=== PATIENT | male | born 1975 | race Caucasian/White ===

== ENCOUNTER 2018-12-15 09:49 | Emergency (ER) | payer OTHER ==
[~2018-12-15] VITALS: Ht 170.2 cm; Wt 86.2 kg
--- OUTSIDE RECORDS SUMMARY | 2018-12-15 09:54 | XMS REPORT | Continuity of Care Document ---
Author Organization Unknown Address Unknown Phone Unavailable Allergies Active Description Code Type Severity Reaction Onset Reported/Identified Relationship to Patient Clinical Status Yes NO KNOWN DRUG ALLERGIES NO KNOWN DRUG ALLERG UNKNOWN Yes NKANo Known Allergies NKA Miscellaneous Allergy Mild N/A 07/14/2009 Medications Medication Packaging Start Date Stop Date Route Dosage Sig AZITHROMYCIN TAB 500 MG (ZITHROMAX) MG 04/21/2016 04/21/2016 ONCE&2208 PROMETHAZINE W/ CODEINE LIQ 0 (PHENERGAN) ml 04/21/2016 04/21/2016 PRN ONCE IPRATROPIUM/ALBUTEROL INH SOLN INH 0 (DUO-NEB INH SOLN) MLS 05/05/2016 05/05/2016 ONCE&1939 PROMETHAZINE W/ CODEINE LIQ 0 (PHENERGAN) ml 05/05/2016 05/05/2016 PRN ONCE Problems Date Dx Coded Attending Type Code Diagnosis Diagnosed By 04/21/2016 Selene Goins 465.8 ACUTE UPPER RESPIRATORY INFECTIONS OF OTHER MULTIPLE SITES 04/21/2016 Selene Goins J06.9 ACUTE UPPER RESPIRATORY INFECTION, UNSPECIFIED 05/05/2016 Osorio Victoria 466.0 ACUTE BRONCHITIS 05/05/2016 Osorio Victoria J20.9 ACUTE BRONCHITIS, UNSPECIFIED 03/14/2017 ALVA ERIC Ot G44.209 TENSION-TYPE HEADACHE, UNSPECIFIED, NOT 03/14/2017 ALVA ERIC Ot R51 HEADACHE Procedures There is no data. Results There is no data. Encounters ACCT No. Visit Date/Time Discharge Status Pt. Type Provider Facility Loc./Unit Complaint [id number] 06/19/2012 11:11:42 RECURRING [id number] 05/05/2016 19:22:00 05/05/2016 20:12:[id number] 04/21/2016 21:22:00 04/21/2016 22:21:00 [facility] [id number] 04/21/2016 22:09:51 Document Registration [id number] 03/14/2017 11:03:00 03/14/2017 13:16:00 DIS ALVA Tejeda [facility] ER HEADACHE
[2018-12-15] MEDS ORDERED: LIDOCAINE 1% INJ 20 ML 20 ML VIAL ONE (10:04)
[2018-12-15] MEDS ORDERED: BUPIVACAINE 0.5% 30 ML (SENSORCAINE) VIAL ONE (10:04)
[2018-12-15] MEDS ORDERED: KETOROLAC 60 MG/2 ML VIAL ONE (10:10)
[2018-12-15] MEDS ORDERED: BUPIVACAINE 0.5% 30 ML (SENSORCAINE) VIAL INJ ONE (10:15)
[2018-12-15] MEDS ORDERED: LIDOCAINE 1% INJ 20 ML 20 ML VIAL INJ ONE (10:15)
[2018-12-15] MEDS ORDERED: KETOROLAC 60 MG/2 ML VIAL IM ONE (10:30)
[2018-12-15] MEDS ORDERED: TETANUS,DIPTH,PERTUSS P/F (BOOSTRIX) 0.5 ML VIAL IM ONE (10:30)
--- NOTE | 2018-12-15 10:35 | ED Upper Extremity ---
General Chief Complaint: Upper Extremity Stated Complaint: HAND LAC Nursing Triage Note: Pt ambulates to the ED RM 10 with a laceration to his pointer finger on the left hand. Pt states he got his hand caught in a ricardo at work. Pt rates pain 10/10 with a throbbing sensation at this time. Nursing Sepsis Screen: No Definite Risk Source: patient Exam Limitations: no limitations History of Present Illness Date Seen by Provider: Dec 15, 2018 Time Seen by Provider: 09:58 Initial Comments Here with injury to the left second, third and fourth finger with the greatest part of the injury on the second finger. Apparently he was working on a in October and got his finger stuck between a belt and ricardo when somebody accidentally bumped the engine start causing the ricardo to move. This did twist his finger a little bit. There is a laceration to the palmar surface of the index finger on the distal pad. Much lesser extent has some pain where his fingers were pinched to the third and fourth distal phalanx area. No laceration or injury there. Hand is covered in grease. Tetanus is not up-to-date. Onset: just prior to arrival (approximately 30-45 minutes ago) Severity: moderate Pain/Injury Location: left 2nd finger, left 3rd finger, left 4th finger Method of Injury: direct blow Modifying Factors: Improves With Immobilization; Worse With Movement Allergies and Home Medications Allergies Coded Allergies: NKANo Known Allergies (Unverified Allergy, Mild, 07/14/09) Home Medications No Active Prescriptions or Reported Meds Patient Home Medication List Home Medication List Reviewed: Yes Review of Systems Constitutional: see HPI; No chills, No fever Respiratory: no symptoms reported Cardiovascular: no symptoms reported Musculoskeletal: see HPI, joint pain, muscle pain Skin: lesions; No pruritus Psychiatric/Neurological: Denies Numbness, Denies Tingling Past Gdcpieh-Shztms-Ofbjjq Hx Past Med/Social Hx: Reviewed Nursing Past Med/Soc Hx Patient Social History Alcohol Use: Rarely Uses Recreational Drug Use: No Smoking Status: Never a Smoker 2nd Hand Smoke Exposure: No Recent Foreign Travel: No Contact w/Someone Who Travel: No Recent Infectious Disease Expo: No Recent Hopitalizations: No Physical Abuse: No Sexual Abuse: No Mistreated: No Fear: No Seasonal Allergies Seasonal Allergies: No Past Medical History Surgeries: No Respiratory: No Cardiac: No Neurological: No Genitourinary: No Gastrointestinal: No Musculoskeletal: No Endocrine: No HEENT: No Cancer: No Psychosocial: No Integumentary: No Blood Disorders: No Family Medical History Reviewed Nursing Family Hx Physical Exam Vital Signs Vital Signs - First Documented 12/15/18 09:56 Temp 96.5 Pulse 66 Resp 20 B/P (MAP) 106/79 (88) Pulse Ox 99 O2 Delivery Room Air Capillary Refill : Less Than 3 Seconds Height, Weight, BMI Height: 5'7.00" Weight: 190lbs. oz. 86.722544pv; BMI Method:Stated General Appearance: WD/WN, no apparent distress Cardiovascular: regular rate, rhythm, no murmur Respiratory: lungs clear, normal breath sounds Hand: Left, laceration (approximately 2 cm laceration to the pad of the left index finger with bleeding controlled. Distal sensation intact. Retains range of motion but limited due to pain.), limited ROM, soft tissue tenderness, stiffness, swelling Neurologic/Tendon: normal motor functions, normal tendon functions, responds to pain Neurologic/Psychiatric: alert, oriented x 3 Skin: warm/dry, ecchymosis Progress/Results/Core Measures Results/Orders My Orders Orders - ADRIA HOLDER MD Lidocaine 1% Inj 20 Ml (Xylocaine 1% Inj (12/15/18 10:04) Bupivacaine 0.5% Injection (Sensorcaine (12/15/18 10:04) Bupivacaine 0.5% Injection (Sensorcaine (12/15/18 10:15) Lidocaine 1% Inj 20 Ml (Xylocaine 1% Inj (12/15/18 10:15) Hand, Left, 3 Views (12/15/18 10:11) Ketorolac Injection (Toradol Injection) (12/15/18 10:30) Ketorolac Injection (Toradol Injection) (12/15/18 10:10) Dipht,Pertuss(Acell),Tet Adult (Boostrix (12/15/18 10:30) Medications Given in ED Current Medications Medications Dose Ordered Sig/Gordo Route Start Time Stop Time Status Last Admin Dose Admin Bupivacaine HCl 30 ml ONCE ONCE INJ 12/15/18 10:15 12/15/18 10:16 DC 12/15/18 10:22 30 ML Diphtheria/ Tetanus/Acell Pertussis 0.5 ml ONCE ONCE IM 12/15/18 10:30 12/15/18 10:31 DC 12/15/18 10:47 0.5 ML Ketorolac Tromethamine 60 mg STK-MED ONCE .ROUTE 12/15/18 10:10 12/15/18 10:18 DC 12/15/18 10:18 60 MG Lidocaine HCl 20 ml ONCE ONCE INJ 12/15/18 10:15 12/15/18 10:16 DC 12/15/18 10:22 20 ML Vital Signs/I&O 12/15/18 09:56 Temp 96.5 Pulse 66 Resp 20 B/P (MAP) 106/79 (88) Pulse Ox 99 O2 Delivery Room Air Blood Pressure Mean: 88 Progress Progress Note : Progress Note Seen and evaluated. Tetanus updated. Digital block left index finger with 1% lidocaine/0.5% bupivacaine approximately 6 mL total after cleaning with forceps solution and water and then alcohol pads. X-ray left hand ordered. Wound and rested and cleaned after digital block cleaned with soap and water. 05/13/07: No acute fracture noted. Wound reevaluated after cleaning. It is just a laceration but it is superficial across. Given contamination concerns and that it is fairly superficial, we will avoid suturing at this point. Wound covered with Xeroform gauze and tube gauze dressing. Aluminum splint placed. We will see the patient back in 2 days for recheck. We will go ahead and initiate antibiotics due to contamination concerns and distal nature of wound. Keflex prescribed outpatient. Discharged home with return precautions. Patient verbalize understanding instructions and agreement with plan. Diagnostic Imaging Diagonstic Imaging: Xray Plain Films/CT/US/NM/MRI: hand Comments [facility] [employer] [place], [place] NAME: DOREEN BATES [employer] REC#: [id number] PT STATUS: REG ER : 1975 PHYSICIAN: ADRIA HOLDER MD ADMIT DATE: 12/15/18/ER Draft Date of Exam:12/15/18 HAND, LEFT, 3 VIEWS INDICATION: Injury to left fingers. TIME OF EXAM: 10:58 AM 3 views of the left hand were obtained. FINDINGS: Distal radius and ulna are intact. Carpus appears intact. Metacarpals are unremarkable. Visualized phalanges appear to be unremarkable. No fractures are seen. IMPRESSION: No acute bony abnormality is detected. Dictated on workstation # [id number] Dict: 12/15/18 1107 Trans: 12/15/18 1110 [id number] Interpreted by: JANE YATES MD Electronically signed by: Departure Impression Primary Impression: Laceration of left index finger Qualified Codes: S61.211A - Laceration without foreign body of left index finger without damage to nail, initial encounter Additional Impression: Contusion, fingers Qualified Codes: S60.00XA - Contusion of unspecified finger without damage to nail, initial encounter Disposition: HOME, SELF-CARE Condition: Stable Departure-Patient Inst. Decision time for Depature: 11:13 Referrals: MONA WALDEN DO (PCP/Family) Primary Care Physician Patient Instructions: Contusion (DC), Laceration Repair Add. Discharge Instructions: All discharge instructions reviewed with patient and/or family. Voiced understanding. Keep dressing in place and clean and dry. Return on Saturday for recheck and further evaluation. Take medications as directed. You may take ibuprofen 600 mg every 8 hours as needed for pain. You may also take Tylenol/acetaminophen 1000 mg every 8 hours as needed for pain. Follow-up with your Dr. in a few days for recheck. Return for worse pain, fever, red streaks up hand, weakness or other concerns as needed. Scripts Cephalexin (Cephalexin) 500 Mg Tablet 500 MG PO QID, #20 TAB 0 Refills Prov: ADRIA HOLDER MD 12/15/18 ADRIA HOLDER MD Dec 15, 2018 10:35
--- NOTE | 2018-12-15 11:10 | Diagnostic Imaging Report ---
INDICATION: Injury to left fingers. TIME OF EXAM: 10:58 AM 3 views of the left hand were obtained. FINDINGS: Distal radius and ulna are intact. Carpus appears intact. Metacarpals are unremarkable. Visualized phalanges appear to be unremarkable. No fractures are seen. IMPRESSION: No acute bony abnormality is detected. Dictated by: Dictated on workstation # [id number]
[2018-12-15] MEDS ORDERED: CEPH500T PO (11:15)
[2018-12-15 11:40] VITALS: BP 114/77
== END 2018-12-15 11:40 | disposition home or self-care (01) ==
LOC: EDUNIT# 09:49 → ER 09:51
DX: S61.211A Laceration without foreign body of left index finger without damage to nail, initial encounter (principal); S60.00XA Contusion of unspecified finger without damage to nail, initial encounter; Z23 Encounter for immunization; W23.0XXA Caught, crushed, jammed, or pinched between moving objects, initial encounter; Y92.59 Other trade areas as the place of occurrence of the external cause; Y99.0 Civilian activity done for income or pay
CPT/HCPCS: 29130; 64450; 73130; 90715

== ENCOUNTER 2018-12-17 08:45 | Emergency (ER) | payer OTHER ==
[~2018-12-17] VITALS: Ht 170.2 cm; Wt 86.2 kg
[~2018-12-17 08:45] MED LIST: CEPH500T PO
--- OUTSIDE RECORDS SUMMARY | 2018-12-17 08:49 | XMS REPORT | Continuity of Care Document ---
[...] Status Pt. Type Provider Facility Loc./Unit Complaint [id number] 06/19/2012 11:11:42 RECURRING [id number] 05/05/2016 19:22:00 05/05/2016 20:12:00 [id number] 04/[facility]/2016 21:22:00 04/21/2016 22:21:00 [id number] 04/21/2016 22:09:51 Document Registration [id number] 12/15/2018 09:51:00 12/15/2018 11:40:00 DIS Emergency ADRIA HOLDER MD Via [facility] ER HAND LAC [id number] 03/14/2017 11:03:00 03/14/2017 13:16:00 DIS Emergency ALVA ERIC Via [facility] ER HEADACHE
--- NOTE | 2018-12-17 09:55 | ED Suture Removal/Wound Check ---
Suture/Wound Re-check Suture Removal/Wound Recheck : Suture Removal/Wound Recheck: Dry/sterile dressing-appl General Appearance: no apparent distress Neuro/Tendon: normal sensation, normal motor functions, normal tendon functions, responds to pain Skin Exam: normal color, warm/dry Comments The patient's laceration to his left index appears to be healing well. A fresh dressing and splint were applied. Patient was asked to return for any further problems or questions and to continue with cleaning the wound twice a day and apply Neosporin at home. Physical Exam Vital Signs Vital Signs - First Documented 12/17/18 09:06 Pulse 76 Resp 14 B/P (MAP) 127/89 Pulse Ox 97 O2 Delivery Room Air Capillary Refill : General Appearance: WD/WN HEENT: normal ENT inspection Neck: normal inspection Respiratory: no respiratory distress Back: normal inspection Extremities: normal inspection Skin: normal color Departure Impression Primary Impression: Visit for wound check Disposition: 01 HOME, SELF-CARE Condition: Improved Departure-Patient Inst. Referrals: MONA WALDEN DO (PCP/Family) Primary Care Physician Patient Instructions: Wound Care (DC) JOSE JUAN MONTIEL MD Dec 17, 2018 09:55
[2018-12-17 10:00] VITALS: BP 127/89
== END 2018-12-17 10:00 | disposition home or self-care (01) ==
LOC: ER 08:45 → EDUNIT# 08:45 → ER 10:00
DX: S61.211D Laceration without foreign body of left index finger without damage to nail, subsequent encounter (principal); X58.XXXD Exposure to other specified factors, subsequent encounter